=== PATIENT | male | born 1995 | race Caucasian/White ===

== ENCOUNTER 2019-09-08 07:28 | Emergency (ER) | payer OTHER ==
[~2019-09-08] VITALS: Ht 180.3 cm; Wt 111.1 kg
[~2019-09-08 07:28] MED LIST: DOXYCYCLINE 10100 MG
[2019-09-08 07:55] LABS: ABSOLUTE EOSINOPHILS 0.1 thou/uL (0.0-0.7); ABSOLUTE MONOCYTES 0.9 thou/uL (0.0-1.2); ABSOLUTE NEUTROPHILS 4.4 thou/uL (1.6-8.1); BASOPHILS 0.7 %; EOSINOPHILS 0.8 %; HEMATOCRIT 45.8 % (42.0-52.0); HEMOGLOBIN 16.2 gm/dL (14.0-18.0); LYMPHOCYTES 15.5 %; MCH 32.2 pg (26.0-34.0); MCHC 35.4 g/dL (28.0-37.0); MCV 90.8 fL (80.0-100.0); MONOCYTES 14.4 %; MPV 8.2 fl. (7.2-11.1); NUCLEATED RBCS 0 /100WBC; PLATELET COUNT* 233 thou/uL (150-400); POLYS 68.6 %; RBC 5.04 mil/uL (4.50-6.00); RDW-CV 13.2 % (10.5-14.5); WBC 6.4 thou/uL (4.0-11.0)
[2019-09-08 08:01] LABS: CALCIUM 8.3 mg/dL (8.5-10.1); CREATININE 1.1 mg/dL (0.6-1.3); POTASSIUM 3.5 mmol/L (3.5-5.1)
[2019-09-08 08:11] LABS: INFLUENZA A ANTIGEN Negative (Negative); INFLUENZA B ANTIGEN Negative (Negative)
[2019-09-08 08:21] LABS: ALBUMIN 3.8 g/dL (3.4-5.0); DIRECT BILIRUBIN 0.2 mg/dL (<0.1-0.3); TOTAL BILIRUBIN 0.7 mg/dL (<0.1-1.0); TOTAL PROTEIN 7.5 g/dL (6.4-8.2)
[2019-09-08 10:12] VITALS: BP 137/84
== END 2019-09-08 10:14 | disposition home or self-care (01) ==
LOC: M.ERS 07:28
PROVIDERS: Emergency Medicine Emergency Medical Services
DX: R19.7 Diarrhea, unspecified (principal); Z88.1 Allergy status to other antibiotic agents

== ENCOUNTER 2020-09-19 17:43 | Emergency (ER) | payer OTHER ==
[~2020-09-19] VITALS: Ht 180.3 cm; Wt 117.9 kg
[2020-09-19] MEDS ORDERED: PREDNISONE 20 M20 MG PO (17:53)
[2020-09-19] MEDS ORDERED: TOPROL XL25 MG PO (17:53)
[2020-09-19] MEDS ORDERED: TRIAMCINOLONE A80 G2 TOP (17:53)
[2020-09-19] MEDS ORDERED: PREDNISONE 10 M10 MG PO (18:17)
[2020-09-19] MEDS ORDERED: HYDROXYZINE HCL25 M2 PO (18:17)
[2020-09-19 18:26] VITALS: BP 152/99
== END 2020-09-19 18:27 | disposition home or self-care (01) ==
LOC: M.ERS 17:43
DX: R21 Rash and other nonspecific skin eruption (principal); L29.9 Pruritus, unspecified; I10 Essential (primary) hypertension; Z90.49 Acquired absence of other specified parts of digestive tract; Z79.899 Other long term (current) drug therapy; Z88.1 Allergy status to other antibiotic agents

== ENCOUNTER → 2021-03-08 | Outpatient (CLI) | payer OTHER ==
[~2021-03-08] MED LIST changes: +HYDROXYZINE HCL25 M2 PO; +PREDNISONE 10 M10 MG PO; +PREDNISONE 20 M20 MG PO; +TOPROL XL25 MG PO; +TRIAMCINOLONE A80 G2 TOP
[2021-03-08 14:06] LABS: ABSOLUTE BASOPHILS 0.1 thou/uL (0.0-0.2); ABSOLUTE EOSINOPHILS 0.4 thou/uL (0.0-0.7); ABSOLUTE LYMPHOCYTES 2.4 thou/uL (0.8-5.3); ABSOLUTE MONOCYTES 0.6 thou/uL (0.0-1.2); ABSOLUTE NEUTROPHILS 4.1 thou/uL (1.6-8.1); BASOPHILS 0.8 %; EOSINOPHILS 5.6 %; HEMATOCRIT 45.4 % (42.0-52.0); HEMOGLOBIN 16.2 gm/dL (14.0-18.0); LYMPHOCYTES 31.5 %; MCH 31.6 pg (26.0-34.0); MCHC 35.6 g/dL (28.0-37.0); MCV 88.8 fL (80.0-100.0); MONOCYTES 7.3 %; MPV 7.7 fl. (7.2-11.1); NUCLEATED RBCS 0 /100WBC; PLATELET COUNT* 314 thou/uL (150-400); POLYS 54.8 %; RBC 5.11 mil/uL (4.50-6.00); WBC 7.5 thou/uL (4.0-11.0)
[2021-03-08 15:28] LABS: ESR (SEDRATE) 1 mm/hr (0-15)
== END ==
LOC: M.LAB 13:37
PROVIDERS: ATTEND Family Medicine
DX: R21 Rash and other nonspecific skin eruption (principal)